=== PATIENT | male | born 1955 | race Caucasian/White ===

== ENCOUNTER 2018-04-20 15:38 | Emergency (ER) | payer OTHER ==
[~2018-04-20] VITALS: Ht 182.9 cm; Wt 109.8 kg
[~2018-04-20 15:38] MED LIST: AMLODIPINE BESY10 MG PO; ASPIRIN81 MG PO; BYSTOLIC20 MG PO; CARVEDILOL25 MG PO; CATAPRES-TTS 21 EACH PO; CATAPRES-TTS 21 EACH TOP; CLONIDINE HCL0.1 MG PO; CLONIDINE HCL0.3 MG PO; COREG25 MG PO; FENOFIBRATE145 MG PO; FUROSEMIDE40 MG PO; FUROSEMIDE80 MG PO; HYDRALAZINE HCL25 MG PO; HYDROCHLOROTH12.5 M1 PO; HYDROCHLOROTHIA25 MG PO; JANUVIA100 MG PO; LISINOPRIL-HCT1 EACH PO; LISINOPRIL40 MG PO; LOSARTAN POTASS25 MG PO; METFORMIN HCL500 MG PO; METOPROLOL TART50 MG PO; ONGLYZA5 MG PO; PRAVASTATIN SOD20 MG PO; XARELTO20 MG PO
[2018-04-20] MEDS ORDERED: ASPIRIN 81 MG CHEW TAB PO ONE (16:45)
[2018-04-20 16:53] LABS: BASOPHILS % 0.4 % (0.0-1.0); EOSINOPHILS % 0.4 % (0.0-6.0); HEMATOCRIT 38.8 % (38.2-49.6); HEMOGLOBIN 13.3 g/dL (14.0-18.0); LYMPHOCYTES # (AUTO) 1.3 (1.0-3.2); LYMPHOCYTES % 11.9 % (18.0-39.1); MEAN CORPUSCULAR HEMOGLOBIN 30.5 pg (28-32); MEAN CORPUSCULAR HGB CONC 34.3 g/dL (31-35); MONOCYTES # (AUTO) 0.6 (0.2-0.8); MONOCYTES % 5.4 % (4.4-11.3); NEUTROPHILS # (AUTO) 8.7 (2.1-6.9); NEUTROPHILS % 81.4 % (38.7-80.0); PLATELET COUNT 304 x10e3/uL (140-360); RED BLOOD COUNT 4.36 x10e6/uL (4.3-5.7); RED CELL DISTRIBUTION WIDTH 13.1 % (11.7-14.4)
[2018-04-20 17:10] LABS: ALBUMIN 3.8 g/dL (3.5-5.0); ALBUMIN/GLOBULIN RATIO 0.7 (0.8-2.0); ANION GAP 20.9 mmol/L (8-16); CALCIUM 10.5 mg/dL (8.4-10.2); CREATININE, SERUM 1.99 mg/dL (0.72-1.25); POTASSIUM 3.9 mmol/L (3.5-5.1)
[2018-04-20 17:16] LABS: CREATINE KINASE MB 2.5 ng/mL (0-5.0)
--- NOTE | 2018-04-20 17:38 | Diagnostic Imaging Report ---
Examination: Single AP view of the chest. COMPARISON: AP chest 09/05/2016 INDICATION: High blood pressure, shortness of breath IMPRESSION: 1. Lines and Tubes: None 2. Hypoinflated lungs. No consolidation. No pleural effusion. 3. Mild prominence of the cardiac silhouette, which is accentuated by low lung volumes. Central pulmonary venous congestion. 4. No acute bony abnormalities. Signed by: Dr. Reddy Gonsalves M.D. on 04/20/2018 5:34 PM
[2018-04-20 18:48] VITALS: BP 172/87
== END 2018-04-20 18:45 | disposition home or self-care (01) ==
LOC: ER 15:38
DX: I10 Essential (primary) hypertension (principal)
CPT/HCPCS: 36415; 71045; 80053; 82550; 82553; 83880; 84484; 85025; 93005; 99283